=== PATIENT | female | born 1950 | race Caucasian/White ===

== ENCOUNTER → 2017-10-06 | Outpatient (CLI) | payer OTHER ==
[~2017-10-06] MED LIST: ALEVE220 MG PO; ASPIR 8181 M1 PO; ATENOLOL-CHLOR1 EAC1 PO; BAYER CHEWABLE81 MG PO; BENAZEPRIL HCL40 MG PO; DOCUSATE SODIU100 MG PO; FUROSEMIDE20 MG PO; IRON325 M1 PO; LIDOCAINE700 MG TD; MAGNESIUM250 MG PO; METFORMIN HCL500 MG PO; NORVASC10 MG PO; OMEGA-31000 M1 PO; OMEPRAZOLE40 M1 PO; OXYCODONE HCL5 MG PO; POTASSIUM GLUCO99 M1 PO; PRAVASTATIN SOD20 MG PO; SENNA PLUS TAB1 EACH PO; SUPER B MAXI C0.4 MG PO; TRAMADOL HCL50 MG PO; ULTRAM50 MG PO; VITAMIN A8000 UNIT PO; VITAMIN C1000 MG PO; VITAMIN D31000 UNI2 PO; VITAMIN E400 UNIT PO; XARELTO10 MG PO
== END | disposition home or self-care (01) ==
LOC: NUC 06:43
DX: R10.11 Right upper quadrant pain (principal)
CPT/HCPCS: 78227; A9537; J2805

== ENCOUNTER → 2017-10-11 | Outpatient (CLI) | payer OTHER ==
[~2017-10-11] VITALS: Ht 157.5 cm; Wt 124.7 kg
== END | disposition home or self-care (01) ==
LOC: AMB 09-07 12:00 → OPR 09-07 13:45 → AMB 10:25
DX: K62.1 Rectal polyp (principal); D12.3 Benign neoplasm of transverse colon; K64.8 Other hemorrhoids; K62.5 Hemorrhage of anus and rectum; G47.33 Obstructive sleep apnea (adult) (pediatric); E66.01 Morbid (severe) obesity due to excess calories; Z68.43 Body mass index [BMI] 50.0-59.9, adult; E11.9 Type 2 diabetes mellitus without complications; Z79.84 Long term (current) use of oral hypoglycemic drugs; I10 Essential (primary) hypertension; D50.0 Iron deficiency anemia secondary to blood loss (chronic); Z79.82 Long term (current) use of aspirin; Z82.49 Family history of ischemic heart disease and other diseases of the circulatory system; Z83.3 Family history of diabetes mellitus; Z88.0 Allergy status to penicillin; Z88.2 Allergy status to sulfonamides; Z88.5 Allergy status to narcotic agent
CPT/HCPCS: 82948; 88305